=== PATIENT | male | born 1980 | race Two or more races ===

== ENCOUNTER 2022-01-17 08:07 | Emergency (ER) | payer OTHER ==
[~2022-01-17] VITALS: Ht 165.1 cm; Wt 88.9 kg
[2022-01-17 11:17] VITALS: BP 121/74
[2022-01-17] MEDS ORDERED: NAP500T PO (13:02)
[2022-01-17] MEDS ORDERED: CEFD300C2 PO (13:02)
== END 2022-01-17 13:11 | disposition home or self-care (01) ==
LOC: ER 08:07 → EDBD 08:07 → ER 13:11
DX: S61.305A Unspecified open wound of left ring finger with damage to nail, initial encounter (principal); W26.9XXA Contact with unspecified sharp object(s), initial encounter; Y93.89 Activity, other specified; Y92.89 Other specified places as the place of occurrence of the external cause; Y99.8 Other external cause status

== ENCOUNTER 2023-02-19 16:32 | Emergency (ER) | payer OTHER ==
[~2023-02-19] VITALS: Ht 165.1 cm; Wt 86.8 kg
[~2023-02-19 16:32] MED LIST: CEFD300C2 PO; NAP500T PO
[2023-02-19] MEDS ORDERED: TETANUS-DIPTH-ACEL PERTUSSIS 0.5ML SYR Tdap IM ONE (18:30)
[2023-02-19 18:31] VITALS: BP 138/88
[2023-02-19] MEDS ORDERED: BACITRACIN TOP OINT 1 UD PKG TOP ONE (18:45)
[2023-02-19] MEDS ORDERED: IBUP-1456 PO (18:53)
[2023-02-19] MEDS ORDERED: CEPH500C PO (18:53)
[2023-02-19] MEDS ORDERED: BACIOIN15 TOP (18:53)
== END 2023-02-19 19:07 | disposition home or self-care (01) ==
LOC: ER 16:32
DX: T20.19XA Burn of first degree of multiple sites of head, face, and neck, initial encounter (principal); T20.16XA Burn of first degree of forehead and cheek, initial encounter; Z88.6 Allergy status to analgesic agent; Z79.899 Other long term (current) drug therapy; X08.8XXA Exposure to other specified smoke, fire and flames, initial encounter; Y93.89 Activity, other specified; Y92.89 Other specified places as the place of occurrence of the external cause; Y99.8 Other external cause status
CPT/HCPCS: 16000; 90471; 90715